=== PATIENT | male | born 1975 ===

== ENCOUNTER 2018-10-04 18:51 | Emergency (ER) | payer SELFPAY ==
[2018-10-04] MEDS ORDERED: Sodium Chloride 0.9% 1,000 ML IV STA (20:02)
--- NOTE | 2018-10-04 20:19 | ED PDOC ---
HPI: Abdomen Time Seen by Provider: 10/04/18 19:33 Chief Complaint (Nursing): Abdominal Pain Chief Complaint (Provider): Abdominal Pain History Per: Patient History/Exam Limitations: no limitations Onset/Duration Of Symptoms: Hrs Current Symptoms Are (Timing): Still Present Additional Complaint(s): 42 y/o male presents to the ED for evaluation of abdominal pain, vomiting and diarrhea since 3 AM. Patient abdominal pain is located in the upper abdomen associated with 4 episodes of non-bloody, watery diarrhea and 6 episodes of non-bloody, non-bilious vomiting. Patient notes pain radiates to the back. Otherwise, patient denies chest pain and shortness of breath. Patient notes he is unable to eat or drink anything due to pain. PMD: none provided Past Medical History Reviewed: Historical Data, Nursing Documentation, Vital Signs Vital Signs: Last Vital Signs Temp 98.2 F 10/04/18 19:27 Pulse 67 10/04/18 19:27 Resp 18 10/04/18 19:27 BP 122/61 10/04/18 19:27 Pulse Ox 98 10/04/18 19:27 - Medical History PMH: No Chronic Diseases - Surgical History Other surgeries: rotator cuff surgery (x3) - Family History Family History: States: Unknown Family Hx - Social History Current smoker - smoking cessation education provided: No Alcohol: None Drugs: Denies - Home Medications Home Medications: Ambulatory Orders Medication Instructions Recorded Dicyclomine [Bentyl] 20 mg PO Q12 PRN #20 tab 10/04/18 Famotidine [Pepcid] 20 mg PO Q12 #14 tab 10/04/18 Ondansetron ODT [Zofran ODT] 4 mg PO Q6 PRN #8 odt 10/04/18 - Allergies Allergies/Adverse Reactions: Allergies Allergy/AdvReac Type Severity Reaction Status Date / Time No Known Allergies Allergy Verified 10/04/18 19:26 Review of Systems ROS Statement: Except As Marked, All Systems Reviewed And Found Negative Cardiovascular: Negative for: Chest Pain Respiratory: Negative for: Shortness of Breath Gastrointestinal: Positive for: Vomiting, Abdominal Pain, Diarrhea Physical Exam - Reviewed Nursing Documentation Reviewed: Yes Vital Signs Reviewed: Yes - Physical Exam Appears: Positive for: Uncomfortable Head Exam: Positive for: ATRAUMATIC, NORMOCEPHALIC Skin: Positive for: Normal Color, Warm, Dry Eye Exam: Positive for: Normal appearance, EOMI, PERRL Neck: Positive for: Normal, Painless ROM, Supple Cardiovascular/Chest: Positive for: Regular Rate, Rhythm. Negative for: Murmur Respiratory: Positive for: Normal Breath Sounds. Negative for: Respiratory Distress Gastrointestinal/Abdominal: Positive for: Tenderness (Epigastric and RUQ tenderness) Back: Positive for: Normal Inspection Extremity: Positive for: Normal ROM. Negative for: Deformity Neurological/Psych: Positive for: Awake, Alert, Oriented (x3) - Laboratory Results Result Diagrams: 10/04/18 20:29 10/04/18 20:29 - ECG O2 Sat by Pulse Oximetry: 98 (RA) Pulse Ox Interpretation: Normal Medical Decision Making Medical Decision Making: Time: 2011 Impression: 42 y/o male presenting with RUQ and epigsatric pain Plan: -- CMP -- Lipase -- ED Urine -- ED Urine Dipstick -- CBC with Differentials -- Bentyl 20 mg PO -- Sodium Chloride IV 1000 mls/hr -- Toradol 30 mg IV -- Zofran Inj 4 mg IV -- Heplock Insertion -- Urinalysis -- US Gallbladder & Pancreas Time: 2132 US RESULTS History Abdominal pain. Comparison None. Technique Sonographic evaluation of the right upper quadrant of the abdomen. Findings Liver Measures 15 cm in length. Normal echogenicity of the liver parenchyma. No mass. No intrahepatic bile duct dilatation. Gallbladder Unremarkable. No gallstones. Common bile duct Measures 3 mm. No stones. No dilatation. Pancreas Unremarkable as visualized. No mass. No ductal dilatation. Right kidney Measures 10.4 x 4.7 x 2.3 cm in length. Normal echogenicity. No calculus, mass, or hydronephrosis. Aorta No aneurysmal dilatation. IVC Unremarkable. Other Findings None. Impression Normal study. Electronically signed on Oct 04, 2018 9:33:43 PM EDT by: Maxim Snyder M.D., M.B.A., Certified By [employer] Trained MRI and CT Specialist Time: 2136 -- Labs reviewed and demonstrate no clinically significant abnormality. On re- evaluation, patient reports an improvement of symptoms. Patient is stable for [facility] with a diagnosis of gastroenteritis. Scribe Attestation: Documented by Charles Peña, acting as a scribe Kodak Carson MD. Provider Scribe Attestation: All medical record entries made by the Scribe were at my direction and personally dictated by me. I have reviewed the chart and agree that the record accurately reflects my personal performance of the history, physical exam, medical decision making, and the department course for this patient. I have also personally directed, reviewed, and agree with the discharge instructions and disposition. Disposition - Clinical Impression Clinical Impression: Gastroenteritis - Patient ED Disposition Is Patient to be Admitted: No Counseled Patient/Family Regarding: Studies Performed, Diagnosis, Rx Given - Disposition Disposition: Routine/Home Disposition Time: 21:37 Condition: STABLE Prescriptions: Dicyclomine [Bentyl] 20 mg PO Q12 PRN #20 tab PRN Reason: abdominal pain/diarrhea Famotidine [Pepcid] 20 mg PO Q12 #14 tab Ondansetron ODT [Zofran ODT] 4 mg PO Q6 PRN #8 odt PRN Reason: Nausea/Vomiting Instructions: Gastroenteritis (ED) Forms: [facility] (Belizean) Print Language: BRITISH
[2018-10-04 20:33] LABS: BASO % 0.4 % (0.0-2.0); EOS % 0.1 % (0.0-4.0); HEMOGLOBIN 14.1 g/dL (12.0-18.0); LYMPH # 1.5 K/uL (1.0-4.3); LYMPH % 16.1 % (20.0-40.0); MEAN CELL VOLUME 90.4 fl (80.0-94.0); MEAN CORPUSCULAR HEMOGLOBIN 30.7 pg (27.0-31.0); MEAN CORPUSCULAR HGB CONC 33.9 g/dL (33.0-37.0); MEAN PLATELET VOLUME 7.2 fl (7.2-11.7); MONO # 0.7 K/uL (0.0-0.8); NEUT # 7.1 K/uL (1.8-7.0); NEUT % 76.4 % (50.0-75.0); NRBC % 0.1 % (0.0-0.0); RBC 4.58 Mil/uL (4.40-5.90); RED CELL DISTRIBUTION WIDTH 13.7 % (11.5-14.5); WHITE BLOOD COUNT 9.2 K/uL (4.8-10.8)
[2018-10-04 20:44] LABS: ALB/GLOB RATIO 1.9 (1.0-2.1); ALBUMIN 4.5 g/dL (3.5-5.0); ALT/SGPT 32 U/L (21-72); AST/SGOT 30 U/L (17-59); BLOOD UREA NITROGEN 11 mg/dl (9-20); CALCIUM 8.7 mg/dL (8.4-10.2); GFR NON-AFRICAN AMERICAN > 60; LIPASE 48 U/L (23-300); URINE BILIRUBIN NEGATIVE (NEGATIVE); URINE BLOOD NEGATIVE (NEGATIVE); URINE CLARITY CLEAR (Clear); URINE COLOR YELLOW (YELLOW); URINE GLUCOSE (UA) NEG (NEGATIVE); URINE LEUKOCYTE ESTERASE NEG Leu/uL (Negative); URINE PROTEIN NEGATIVE (NEGATIVE); URINE UROBILINOGEN 0.2-1.0 mg/dL (0.2-1.0)
[2018-10-04 21:45] VITALS: BP 127/72; PULSE 73; RESP 15; TEMP 98.3; O2SAT 100
--- NOTE | 2018-10-05 12:58 | US ---
Date of service: 10/04/2018 HISTORY: abd pain COMPARISON: None. TECHNIQUE: Sonographic evaluation of the right upper quadrant of the abdomen. FINDINGS: LIVER: Measures 15.0 cm in length. Normal echogenicity of the liver parenchyma. No mass. No intrahepatic bile duct dilatation. Normal hepatopetal portal venous flow. GALLBLADDER: Unremarkable. No gallstones. COMMON BILE DUCT: Measures 4 mm. No stones. No dilatation. PANCREAS: Unremarkable as visualized. No mass. No ductal dilatation. RIGHT KIDNEY: Measures 10.4 cm in length. Normal echogenicity. No calculus, mass, or hydronephrosis. AORTA: No aneurysmal dilatation. IVC: Unremarkable. OTHER FINDINGS: None . IMPRESSION: Unremarkable examination. No evidence of cholelithiasis or cholecystitis. The preliminary findings for this examination were reported by [facility] at 9:33 p.m. on 10/04/2018. There is concurrence of this report with the preliminary findings.
== END 2018-10-04 21:44 | disposition home or self-care (01) ==
LOC: H.ER 18:51
DX: K52.9 Noninfective gastroenteritis and colitis, unspecified (principal)
CPT/HCPCS: 76705; 80053; 81003; 83690; 85025; 99283; J1885; J2405; J7030